=== PATIENT | male | born 1985 | race African-American/Black ===

== ENCOUNTER 2017-02-11 09:18 | Emergency (ER) | payer SELFPAY ==
[~2017-02-11] VITALS: Ht 185.4 cm; Wt 98.0 kg
[~2017-02-11 09:18] MED LIST: HYDR-3533 PO; ROBA750T3 PO
[2017-02-11 09:19] VITALS: BP 133/80; PULSE 74; RESP 20; TEMP 98.5; O2SAT 100
[2017-02-11] MEDS ORDERED: IBUP800T23 PO (09:56)
[2017-02-11] MEDS ORDERED: MAGICADU2 SWISH-SPIT (09:56)
[2017-02-11] MEDS ORDERED: PENI500T PO (09:56)
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
== END 2017-02-11 10:27 | disposition home or self-care (01) ==
LOC: NEPK 09:18
DX: K02.9 Dental caries, unspecified (principal); F17.200 Nicotine dependence, unspecified, uncomplicated
CPT/HCPCS: 99284

== ENCOUNTER 2017-05-21 05:53 | Emergency (ER) | payer OTHER ==
[~2017-05-21] VITALS: Ht 185.4 cm; Wt 95.0 kg
[~2017-05-21 05:53] MED LIST changes: +IBUP1TAB7 PO; +MAGICADU2 SWISH-SPIT; +PENI500T PO
[2017-05-21 05:54] VITALS: BP 148/87; PULSE 73; RESP 16; TEMP 97.9; O2SAT 99
[2017-05-21] MEDS ORDERED: DICL75TA PO (06:20)
[2017-05-21] MEDS ORDERED: AMOX500T PO (06:20)
[2017-05-21] MEDS ORDERED: NORC5TAB PO (06:20)
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
[2017-05-21] MEDS ORDERED: ACETAMINOPHEN/HYDROcodone 325 MG/5 MG TAB PO ONE (06:30)
[2017-05-21] MEDS ORDERED: AMOXICILLIN (TRIHYDRATE) 500 MG CAP PO ONE (06:30)
== END 2017-05-21 06:43 | disposition home or self-care (01) ==
LOC: NEPD 05:53
DX: K08.89 Other specified disorders of teeth and supporting structures (principal)
CPT/HCPCS: 99284